=== PATIENT | female | born 1940 ===

== ENCOUNTER 2017-10-28 06:05 | Day surgery (SDC) | payer OTHER, MEDICARE ==
[2017-10-27 15:50] VITALS: BMI 25.7
[2017-10-28] MEDS ORDERED: PROPOFOL 20 ML ONE (07:12)
[2017-10-28] MEDS ORDERED: SUCCINYLCHOLINE CHLORIDE 200 MG/10 ML VIAL ONE (07:12)
[2017-10-28] MEDS ORDERED: LIDOCAINE 1%/EPI 1:100000 (20 ML MULTI DOSE VIAL) ONE (07:15)
[2017-10-28] MEDS ORDERED: BUPIVACAINE HCL/PF 0.5% (5MG/ML) 10 ML VIAL ONE (07:15)
--- NOTE | 2017-10-28 08:07 | HP ---
Satellite [facility] - Chief Complaint Chief Complaint: right knee pain History Source: Patient - Past Medical History Allergies/Adverse Reactions: Allergies Allergy/AdvReac Type Severity Reaction Status Date / Time epinephrine Allergy "heart Verified 10/27/17 15:54 races" Gadolinium-Containing Allergy "infection Verified 10/27/17 15:54 Contrast Medi in urine" iodine Allergy "head Verified 10/27/17 15:54 explodes" TETNUS Allergy Severe Uncoded 10/28/17 06:53 - Current Medications Current Medications: Home Medications Medication Instructions Recorded Pancreat/Betaine/Pepsin/Bromel 1 each PO UTDICT 10/27/17 [Super Enzyme Caps] Satellite Physical Exam - Physical Examination Vital Signs: Vital Signs Period Temp Pulse Resp BP Sys/Pinedo Pulse Ox Last 24 Hr 98.6 F-98.6 F 84-84 20-20 138-138/55-55 98 Extremities: Other (+ JOINT LINE TENDERNESS) Satellite Impression/Plan - Impression/Plan Impression: INTERNAL DERANGEMENT RIGHT KNEE Operative Procedure: ARTHROSCOPY RIGHT KNEE Date to be Performed: 10/28/17
[2017-10-28] MEDS ORDERED: LIDOCAINE HCL/PF 2% SDV 5ML VIAL ONE (08:11)
[2017-10-28] MEDS ORDERED: ceFAZolin SODIUM 1 GM VIAL ONE (08:22)
[2017-10-28] MEDS ORDERED: DEXAMETHASONE SOD PHOSPHATE 4 MG/1 ML VIAL ONE (08:31)
--- NOTE | 2017-10-28 09:02 | OP ---
Operative Note - Note: Operative Date: 10/28/17 ([facility]) Pre-Operative Diagnosis: right knee internal derangement Operation: right knee arthroscopy with PMM, PLM Post-Operative Diagnosis: Same as Pre-op Surgeon: Diego Ba Anesthesiologist/TRACTOR TECHNICIAN: Joseph López Anesthesia: General, Local Specimens Removed: shavings Estimated Blood Loss (mls): 5 Operative Report Dictated: Yes
--- NOTE | 2017-10-28 09:29 | OP ---
DATE OF OPERATION: 10/28/2017 PREOPERATIVE DIAGNOSIS: Internal derangement, right knee. POSTOPERATIVE DIAGNOSIS: Internal derangement, right knee. PROCEDURE: Arthroscopy, right knee, with partial medial and lateral meniscectomies. SURGICAL ATTENDING: Diego Ba MD ANESTHESIA: General LMA. CLOSURE: 4-0 nylon. COMPLICATIONS: None. CONDITION: To recovery room in stable condition. DESCRIPTION OF OPERATIVE PROCEDURE: Patient was taken to the operating room on October 29, 2015. General anesthesia with LMA was administered by the anesthesiologist. Right lower extremity was prepped and draped in the usual sterile fashion. Medial and lateral infrapatellar portal sites were infiltrated with 1% Xylocaine with epinephrine. Both portals was then made with a 15-blade followed by a blunt trocar. The scope trocar was placed up through the inferolateral portal into the suprapatellar pouch. The knee was inflated with a cocktail of 10 mL of 1% Xylocaine, 10 mL of 0.5% Marcaine, and 20 mL of arthroscopic saline. After allowing the medication to anesthetize the intraarticular portion of the knee, we then continued with the procedure. The scope was placed in the suprapatellar pouch. The pouch was visualized to be clean. The medial and lateral gutters were visualized to be clean. The undersurface of the patella and trochlea were visualized to be intact. With valgus stress on the knee, the medial compartment was entered. The medial meniscus had a complex tear, a large flap tear that had flapped in the gutter and posteriorly. This was debrided back to smooth, stable meniscal tissue with meniscal biter and an arthroscopic shaver. As we had to take the meniscal dissection almost to the rim, a ArthroCare device was used to coagulate and cauterize any bleeders on the portion closest to the synovium and joint capsule. The medial femoral condyle was run and found to be intact as was the medial tibial plateau. At 90 degrees, the ACL was visualized and found to be intact. In the figure 4 position, lateral compartment was entered. The lateral meniscus was visualized and then probed, found to have a radial tear of its mid portion. This was debrided back to smooth, stable meniscal tissues with meniscal biter and arthroscopic shaver. The lateral femoral condyle was run and found to be intact, as was the lateral tibial plateau. The knee was irrigated with copious amounts of irrigation. The portals were closed using 4-0 nylon. Prior to closure, 20 mL of 0.5% Marcaine was infused through the outflow portal prior to pulling the trocar. Sterile pressure dressing was placed over the knee. Patient awakened from anesthesia and transferred to recovery in stable condition. No complications. Estimated blood loss negligible. DIEGO BA M.D. SIDDHARTHA/[id number]
[2017-10-28] MEDS ORDERED: ONDANSETRON 4 MG/2 ML VIAL IVPUSH PRN (10:09)
[2017-10-28] MEDS ORDERED: oxyCODONE HCL 5 MG TABLET PO PRN (10:09)
[2017-10-28] MEDS ORDERED: LACTATED RINGERS SOLUTION 1,000 ML IV SCH (10:15)
[2017-10-28 11:43] VITALS: BP 156/88; PULSE 91; TEMP 98.2
--- NOTE | 2017-10-29 16:40 | PATH ---
Surgical Pathology Report Patient Name: JAYME ISABEL [facility]. Rec. #: [id number] /Age/Gender: 1940 (Age: 76) / F Account: [id number] Location: [facility] Taken: 10/28/2017 Received: 10/28/2017 Reported: 10/29/2017 Physicians: Diego Ba M.D. Specimen(s) Received RIGHT KNEE SHAVINGS Clinical History Right knee tear Final Diagnosis RIGHT KNEE SHAVINGS: SYNOVIAL TISSUE AND FIBROCARTILAGINOUS TISSUE WITH DEGENERATIVE CHANGE. Electronically Signed Jeffrey Leon M.D. Gross Description Received in formalin, labeled "right knee shavings" are multiple fragments of light centeno and yellow soft tissue having aggregate 3.5 x 3 x 1.5 cm. [employer] tissue is submitted in one cassette. AE/10/28/2017 ebram/10/28/2017
== END 2017-10-28 11:50 | disposition home or self-care (01) ==
LOC: JASU-SURG 06:05
PROVIDERS: ATTEND Orthopaedic Surgery
PROC: 0SBC4ZZ Excision of Right Knee Joint, Percutaneous Endoscopic Approach (ICD-10-PCS; 2017-10-28)
PROC: 0SBC4ZZ Excision of Right Knee Joint, Percutaneous Endoscopic Approach (ICD-10-PCS; principal; 2017-10-28 08:00)
DX: M23.91 Unspecified internal derangement of right knee (principal)
CPT/HCPCS: 88304-TC; 94760